=== PATIENT | female | born 1965 | race Asian ===

== ENCOUNTER 2024-01-19 17:59 | Emergency (ER) | payer OTHER ==
[2024-01-19 18:05] VITALS: BP 103/74; PULSE 76; RESP 16; TEMP 98; BMI 31.5
[2024-01-19] MEDS ORDERED: ACETAMINOPHEN 325 MG TABLET (FP) ONE (19:52)
[2024-01-19] MEDS: SODIUM CHLORIDE 0.9% 500 ML INFUS.BAG IV ONE (20:09)
[2024-01-19] MEDS: ACETAMINOPHEN 500 MG TABLET (FP) PO ONE (20:09)
[2024-01-19 20:15] LABS: BASO % 0.5 % (0-2.0); EOS % 0.3 % (0-4.5); HEMATOCRIT 41.2 % (32.4-45.2); HEMOGLOBIN 13.4 GM/dL (10.7-15.3); LYMPH % 7.7 % (8-40); MCH 28.2 pg (25.7-33.7); MCHC 32.5 g/dl (32.0-36.0); MEAN CELL VOLUME 86.8 fl (80-96); MEAN PLT VOLUME 7.9 fl (7.5-11.1); MONO % 4.5 % (3.8-10.2); PLATELET COUNT 239 10^3/uL (134-434); RBC 4.74 M/mm3 (3.60-5.2); RDW 14.9 % (11.6-15.6)
[2024-01-19 20:26] LABS: INR 0.94 (0.83-1.09); PROTHROMBIN TIME (PATIENT) 10.9 SEC (9.7-13.0)
[2024-01-19 20:29] LABS: ACTIVATED PTT 32.8 SECONDS (25.2-36.5)
[2024-01-19 20:37] LABS: POTASSIUM 3.9 mmol/L (3.5-5.1)
[2024-01-19 20:39] LABS: CALCIUM 9.5 mg/dL (8.5-10.1)
[2024-01-19 20:41] LABS: ALBUMIN 3.9 g/dl (3.4-5.0); BLOOD UREA NITROGEN 18.2 mg/dL (7-18)
[2024-01-19 20:43] LABS: CREATININE 1.1 mg/dL (0.55-1.3)
[2024-01-19 20:45] LABS: BILIRUBIN,TOTAL 0.4 mg/dL (0.2-1); TOT PROT 7.5 g/dl (6.4-8.2)
[2024-01-19 20:54] LABS: EPI CELLS 14 /uL (0-25.1); HYALINE CASTS 1 /uL (0-3.1); PH,URINE 6.5 (5.0-8.0); URINE APPEARANCE CLEAR; URINE BACTERIA 310 /uL (0-1359); URINE BILIRUBIN NEGATIVE (NEGATIVE); URINE COLOR YELLOW; URINE GLUCOSE (UA) NEGATIVE (NEGATIVE); URINE KETONE NEGATIVE (NEGATIVE); URINE LEUK ESTERASE NEGATIVE (NEGATIVE); URINE NITRITE NEGATIVE (NEGATIVE); URINE PROTEIN 1+ (NEGATIVE); URINE RBC 13 /uL (0-23.9); URINE UROBILINOGEN 0.2 mg/dL (0.2-1.0); URINE WBC 7 /uL (0-25.8)
== END 2024-01-19 23:41 | disposition short-term general hospital (02) ==
LOC: JER 17:59
DX: I71.010 Dissection of ascending aorta (principal); R07.9 Chest pain, unspecified; R51.9 Headache, unspecified; R68.84 Jaw pain; R20.2 Paresthesia of skin; R26.2 Difficulty in walking, not elsewhere classified; R29.898 Other symptoms and signs involving the musculoskeletal system
CPT/HCPCS: 36415; 70450-TC; 71045-TC-FY; 71275-TC; 74174-TC; 80053; 80061; 81003; 82550; 82962; 83036; 84484; 85025; 85610; 85730; 93005; 93010; 99285-25